=== PATIENT | male | born 1960 | race Caucasian/White ===

== ENCOUNTER 2016-11-25 11:52 | Emergency (ER) | payer BC ==
[2016-11-25 12:27] VITALS: BP 118/83
--- NOTE | 2016-11-25 12:37 | UC ---
Epistaxis Nasal HPI - HPI Summary HPI Summary: The patient comes in today for: 1. Nosebleed: Onset: 7 hours. Palliative/provocative: Nothing particular makes it better or worse other than laying down which makes it worse. Quality: No pain. Region: Right nares. Severity: 0/10 Time: Comes and goes. Associated symptoms: Home treatment: cold washcloth and pinching the nose. Previous treatment: None. He states that the bleeding occurs in an on and off fashion and it has not stopped. He brings in a bottle containing about 1/3 cup of blood. He denies any bleeding disorder. 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 Endocrine History Of: Reports: Dyslipidemia Denies: Diabetes, Thyroid Disease, Hyperthyroidism, Hypothyroidism Cardiovascular History Of: Reports: Hypertension Denies: Cardiac Disorders, Pacemaker/ICD, Congestive Heart Failure Respiratory History Of: Reports: COPD Denies: Asthma, Bronchitis, Pneumonia, Pulmonary Embolism GI/ History Of: Reports: Gastroesophageal Reflux Denies: Ulcer, Gastrointestinal Bleed, Gall Bladder Disease, Kidney Stones, Diverticulitis, Renal Disease, Urosepsis Neurological History Of: Denies: TIA, CVA, Dementia, Seizures, Migraine Psychological History Of: Reports: Depression Denies: Anxiety, Bipolar Disorder, Schizophrenia, Post Traumatic Stress Disorder Cancer History Of: Denies: Lung Cancer, Colorectal Cancer, Breast Cancer, Prostate Cancer, Cervical Cancer Other History Of: Negative For: HIV, Hepatitis B, Hepatitis C, Anticoagulant Therapy - Surgical History Surgical History: None - Family History Known Family History: Positive: Cardiac Disease - Social History Occupation: Unemployed Alcohol Use: Rare Substance Use Type: None Smoking Status (MU): Heavy Every Day Tobacco Smoker Type: Cigarettes Amount Used/How Often: 1 PPD Length of Time of Smoking/Using Tobacco: 42+ YEARS - Immunization History Most Recent Influenza Vaccination: 2011 Most Recent Tetanus Shot: possibly in last 6-7 yrs ago Most Recent Pneumonia Vaccination: none Review of Systems Constitutional: Negative Skin: Negative Eyes: Negative ENT: Negative Respiratory: Negative Cardiovascular: Negative Gastrointestinal: Negative Genitourinary: Negative All Other Systems Reviewed And Are Negative: Yes Physical Exam Triage Information Reviewed: Yes Appearance: Well-Appearing, No Pain Distress, Well-Nourished Vital Signs: Initial Vital Signs Temp 97.6 F 11/25/16 12:23 Pulse 97 11/25/16 12:23 Resp 18 11/25/16 12:23 BP 118/83 11/25/16 12:23 Pulse Ox 98 11/25/16 12:23 Vital Signs Reviewed: Yes Eyes: Positive: Conjunctiva Clear. Negative: Discharge ENT: Positive: Hearing grossly normal, Other: - There is no active bleeding at this time. There is no oozing from the Kiesselbach plexus on the right. There are no clots. There is no obvious vesssel at Kiesselbach's plexus that can be cauterized.. Negative: Pharyngeal erythema, Nasal congestion, Nasal drainage, TM bulging, TM dull, TM red, Tonsillar swelling, Tonsillar exudate Dental: Negative: Gross Decay/Caries @, Dental Fracture @ Neck: Positive: Supple, Nontender, No Lymphadenopathy. Negative: Nuchal Rigidity Respiratory: Positive: Chest non-tender, Lungs clear, No respiratory distress, No accessory muscle use. Negative: Crackles, Wheezing Cardiovascular: Positive: RRR, No Murmur Abdomen Description: Positive: Nontender, No Organomegaly, Soft. Negative: Distended, Guarding Musculoskeletal: Positive: Strength Intact, ROM Intact Neurological: Positive: Alert, Muscle Tone Normal Psychological: Positive: Age Appropriate Behavior, Consolable Skin: Negative: rashes, breakdown Epistaxis Nasal Course/Dx - Course Course Of Treatment: Due to the patient's on and off bleeding, the option of a Merocel standard nasal dressing was discussed with the patient and he and his family wanted to go with this between now and the time he has his ENT appointment. This packing was placed with no problems. - Differential Dx/Diagnosis Provider Diagnoses: Right nares epistaxis. Discharge - Discharge Plan Condition: Stable Disposition: HOME Patient Education Materials: Nosebleed (ED) Referrals: Yuli Maldonado MD [Primary Care Provider] - Jae Damon MD [Medical Doctor] - As Soon As Possible (Please contact Dr. Damon's office as soon as you can for a follow-up appointment for your nose bleeding and packing. ) Additional Instructions: Please sleep with your head elevated.
== END 2016-11-25 13:15 | disposition home or self-care (01) ==
LOC: UCEAST 11:52
DX: R04.0 Epistaxis (principal); I10 Essential (primary) hypertension; E78.5 Hyperlipidemia, unspecified; J44.9 Chronic obstructive pulmonary disease, unspecified; F17.210 Nicotine dependence, cigarettes, uncomplicated; K21.9 Gastro-esophageal reflux disease without esophagitis; G60.0 Hereditary motor and sensory neuropathy
CPT/HCPCS: 30905; 99212; G0463

== ENCOUNTER 2016-11-25 18:37 | Emergency (ER) | payer BC ==
--- NOTE | 2016-11-25 20:02 | ED ---
Throat Pain/Nasal Congestion - HPI Summary HPI Summary: Pt here w/ persistent epistaxis. This started while he was sleeping last night/ early this morning at 3:30am. Denies trauma to the area. Reports he's been getting these on/off the past week but today it wouldn't stop despite pressure. Went to and report indicates pt's nose was not bleeding at that time and no visible vessel or area of concern was identified. A mircel "rhinorocket" was placed for prophlaxis and pt was fine until his nose started bleeding again. It is bleeding through the tamponade and out the other side as well as into his mouth. He also reports a headache forming behind his Rt eye. States this could be from tamponade placement but not sure. Denies taking anti-coagulants and no issues w/ his blood pressure however diastolic is 100's today. Denies bleeding from other locations and no easy bruising of note. No otalgia, fever, chills, chest pain. - History of Current Complaint Chief Complaint: EDEpistaxis Time Seen by Provider: 11/25/16 19:41 Hx Obtained From: Patient, Family/Wall Attendant - female family member - Allergies/Home Medications Allergies/Adverse Reactions: Allergies Allergy/AdvReac Type Severity Reaction Status Date / Time No Known Allergies Allergy Verified 07/07/15 15:06 PMH/Surg Hx/FS Hx/Imm Hx Previously Healthy: Yes Endocrine/Hematology History: Denies: Hx Anticoagulant Therapy, Hx Blood Disorders, Hx Diabetes, Hx Thyroid Disease, Hx Unexplained Bleeding Cardiovascular History: Reports: Hx Hypertension, Other Cardiovascular Problems/ Disorders - HTN Denies: Hx Congestive Heart Failure, Hx Pacemaker/ICD Respiratory History: Reports: Hx Chronic Obstructive Pulmonary Disease (COPD), Other Respiratory Problems/Disorders - COPD Denies: Hx Asthma, Hx Lung Cancer, Hx Pneumonia, Hx Pulmonary Embolism GI History: Denies: Hx Gall Bladder Disease, Hx Gastrointestinal Bleed, Hx Ulcer, Hx Urosepsis History: Denies: Hx Kidney Stones, Hx Renal Disease Musculoskeletal History: Reports: Hx Arthritis, Other Musculoskeletal History - muscular dystrophy Sensory History: Denies: Hx Hearing Aid Neurological History: Reports: 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 Denies: Hx Dementia, Hx Migraine, Hx Seizures, Hx Transient Ischemic Attacks (TIA) Psychiatric History: Reports: Hx Depression Denies: Hx Anxiety, Hx Panic Disorder, Hx Schizophrenia, Hx Bipolar Disorder - Immunization History Date of Tetanus Vaccine: UTD Infectious Disease History: Reports: Hx Shingles - shingles possibly Denies: Hx Clostridium Difficile, Hx Hepatitis, Hx Human Immunodeficiency Virus (HIV), Hx of Known/Suspected MRSA, Hx Tuberculosis, Hx Known/Suspected VRE , Hx Known/Suspected VRSA, History Other Infectious Disease, Traveled Outside the [place] in Last 30 Days - Family History Known Family History: Positive: Cardiac Disease - Social History Lives: With Family Alcohol Use: Rare Hx Substance Use: No Substance Use Type: Reports: None Smoking Status (MU): Current Every Day Smoker Type: Cigarettes Amount Used/How Often: 1 PPD Length of Time of Smoking/Using Tobacco: 42+ YEARS Review of Systems Negative: Fever, Chills Positive: Epistaxis - see HPI Negative: Chest Pain Negative: Shortness Of Breath - but is difficult to breath w/ B/L nasal passages clogged and blood going down throat Gastrointestinal: Negative Negative: Abdominal Pain, Vomiting, Diarrhea, Nausea Positive: no symptoms reported Musculoskeletal: Negative Negative: Bruising Positive: Headache - see HPI Psychological: Normal All Other Systems Reviewed And Are Negative: Yes Physical Exam Triage Information Reviewed: Yes Vital Signs On Initial Exam: Initial Vitals Temp Pulse Resp BP Pulse Ox 97.0 F 97 20 140/101 100 11/25/16 18:39 11/25/16 18:39 11/25/16 18:39 11/25/16 18:39 11/25/16 18:39 Vital Signs Reviewed: Yes Appearance: Positive: Well-Appearing, No Pain Distress, Thin Skin: Positive: Warm, Dry Head/Face: Positive: Normal Head/Face Inspection ENT: Positive: Nasal drainage - BRB from B/L nares - tamponade is saturated in Rt nare Respiratory/Lung Sounds: Positive: Other - mild tachypnea. Negative: Stridor Diagnostics - Vital Signs Vital Signs Temp Pulse Resp BP Pulse Ox 11/25/16 18:39 97.0 F 97 20 140/101 100 - Laboratory Lab Statement: Any lab studies that have been ordered have been reviewed, and results considered in the medical decision making process.
[2016-11-25 20:26] VITALS: BP 132/90
[2016-11-25 20:31] LABS: Hematocrit 42 % (42-52); Hemoglobin 14.2 g/dl (14.0-18.0); Mean Corpuscular HGB Conc 34 g/dl (31-36); Mean Corpuscular Hemoglobin 30 pg (27-31); Mean Corpuscular Volume 88 fL (80-94); Mean Platelet Volume 10 um3 (7.4-10.4); Red Blood Count 4.78 10^6/ul (4.0-5.4); Red Cell Distribution Width 14 % (10.5-15)
[2016-11-25 21:01] LABS: Total Bilirubin 0.5 mg/dL (0.2-1.0)
[2016-11-25 21:05] LABS: Albumin 3.7 g/dL (3.2-5.2); Calcium 9.4 mg/dL (8.6-10.3); EGFR African American 162.3 (>60); EGFR Non-African American 126.2 (>60); Potassium 3.6 mmol/L (3.5-5.0); Total Protein 6.7 g/dL (6.4-8.9)
[2016-11-25] MEDS ORDERED: Phenylephrine 0.25% NASAL* PUFF BOTH NARES ONE (21:20)
[2016-11-25] MEDS ORDERED: Lidocaine 2% JELLY* 10 ML JELLY TOPICAL ONE (21:21)
[2016-11-25] MEDS ORDERED: Phenylephrine 0.5% NASAL* BTL BOTH NARES ONE (21:21)
[2016-11-25] MEDS ORDERED: Lidocaine 2% JELLY* 6 ML JELLY TOPICAL ONE (21:22)
[2016-11-25] MEDS ORDERED: Phenylephrine 0.5% NASAL* BTL ONE (21:22)
[2016-11-25] MEDS ORDERED: oxyCODONE/Acetamin 5/325 MG* TAB PO ONE ×2 (22:14→23:10)
[2016-11-25] MEDS ORDERED: Amoxicillin/Clavulanate TAB* 875 MG PO ONE (23:17)
== END 2016-11-25 23:25 | disposition home or self-care (01) ==
LOC: ED 18:37
DX: R04.0 Epistaxis (principal); F17.210 Nicotine dependence, cigarettes, uncomplicated
CPT/HCPCS: 36415; 80053; 85025; 85610; 85730; 99282; A9270-GY

== ENCOUNTER 2017-08-25 13:32 | Inpatient (IN) | payer BC ==
[2017-08-25] MEDS ORDERED: Albuterol/Ipratropium NEB.SOL* Albuterol 2.5 MG/Ipratropium 0.5 MG 3 ML INH ONE (13:50)
[2017-08-25] MEDS ORDERED: methylPREDNISolone 125 MG* 2 ML VIAL IV ONE (14:05)
[2017-08-25] MEDS ORDERED: Albuterol/Ipratropium NEB.SOL* Albuterol 2.5 MG/Ipratropium 0.5 MG 3 ML INH PRN (14:05)
[2017-08-25] MEDS ORDERED: Oseltamivir CAP* 75 MG CAP PO ONE (14:06)
[2017-08-25 14:32] LABS: ABS Basophils 0.1 10^3/ul (0-0.2); ABS Eosinophils 0.1 10^3/ul (0-0.6); ABS Lymphocytes 0.7 10^3/ul (1.0-4.8); ABS Monocytes 0.7 10^3/ul (0-0.8); ABS Neutrophils 5.6 10^3/ul (1.5-7.7); ABS Nucleated RBC 0 10^3/ul; Eosinophil % 0.8 % (0-6); Hematocrit 38 % (42-52); Hemoglobin 12.9 g/dl (14.0-18.0); Lymphocyte % 9.7 % (25-47); Mean Corpuscular HGB Conc 34 g/dl (31-36); Mean Corpuscular Hemoglobin 28 pg (27-31); Mean Corpuscular Volume 83 fL (80-94); Mean Platelet Volume 11 um3 (7.4-10.4); Nucleated Red Blood Cells % 0; Platelet Count 126 10^3/ul (150-450); Red Blood Count 4.62 10^6/ul (4.0-5.4); Red Cell Distribution Width 15 % (10.5-15); White Blood Count 7.2 10^3/ul (3.5-10.8)
[2017-08-25] MEDS ORDERED: Acetaminophen TAB* 325 MG ONE (14:34)
[2017-08-25] MEDS ORDERED: Morphine INJ* 4 MG/ML 1 ML CARPUJECT IV ONE (14:47)
[2017-08-25] MEDS ORDERED: Ondansetron INJ* 2 MG/ML VIAL IV ONE (14:47)
[2017-08-25 14:48] LABS: EGFR Non-African American 108.3 (>60)
--- NOTE | 2017-08-25 14:49 | RAD ---
INDICATION: Difficulty breathing COMPARISON: Most recent comparison chest x-rays dated August 06, 2013 TECHNIQUE: Single AP portable view of the chest was obtained. FINDINGS: Image quality is compromised due to the relative inferiority of a portable chest x-ray. The heart and mediastinum exhibit normal size and contour. Similar to the prior chest x-ray, the lungs appear hyperaerated. There is a mild degree of peribronchial cuffing. There is no evidence of a large pleural effusion. Loops of air-filled colon are noted beneath the right hemidiaphragm. There is no definite free air in the peritoneal cavity. Visualized bones are normal for the patient's age. IMPRESSION: 1. No radiographically apparent acute cardiopulmonary abnormality. 2. Incidentally noted are air-filled loops of bowel beneath the right hemidiaphragm. Please correlate to any potential GI symptoms.
[2017-08-25] MEDS ORDERED: Acetaminophen TAB* 325 MG PO ONE (14:53)
[2017-08-25] MEDS ORDERED: Al Hydrox/Mg Hydrox/Simet LIQ* 30 ML UDC PO PRN (15:30)
[2017-08-25] MEDS ORDERED: Iohexol 350* (CONTRAST) 500 ML MDV IV ONE (16:15)
[2017-08-25] MEDS ORDERED: Vancomycin per Pharmacy* NOTE FOLLOW UP PRN (16:47)
[2017-08-25] MEDS ORDERED: Ipratropium 0.5MG/2.5ML NEB* 0.5 MG/2.5 ML NEB.SOLN INH SCH (17:00)
[2017-08-25] MEDS ORDERED: Vancomycin(*) 750 MG in NS 0.9% 250 ML* 250 ML IVPB SCH (17:00)
[2017-08-25] MEDS ORDERED: Albuterol 2.5 MG/3 ML NEB.SOL* (0.083%) INH SCH (17:00)
[2017-08-25] MEDS: Enoxaparin(*) 40 MG/0.4 ML SYR SUBCUT SCH (17:04)
[2017-08-25] MEDS: methylPREDNISolone SOD 40 MG* 1 ML VIAL IV SCH (17:04)
[2017-08-25] MEDS: Azithromycin IV(*) 500 MG in NS 0.9% 250 ML* 250 ML IVPB SCH (17:11)
[2017-08-25] MEDS ORDERED: Vancomycin(*) 1,250 MG IV x ONCE IVPB ONE ×2 (17:45)
[2017-08-25] MEDS: Albuterol/Ipratropium NEB.SOL* Albuterol 2.5 MG/Ipratropium 0.5 MG 3 ML INH SCH (20:41)
--- NOTE | 2017-08-25 20:50 | RAD ---
STUDY: CT angiography of the chest, abdomen and pelvis. INDICATION: Exacerbation of COPD COMPARISON: CTA chest August 07, 2013 TECHNIQUE: Multidetector CT angiography of the chest, abdomen and pelvis were obtained from the lung apices to the ischial tuberosities after the intravenous injection of 100 mL of Omnipaque 350. Reformats were created in the coronal and sagittal planes. 3-D vascular imaging was created from the source images and reviewed as well. ANGIOGRAPHIC FINDINGS: There are no filling defects of the central or lobar pulmonary arteries. At the level of the right pulmonary artery the ascending aorta measures 3.5 x 3.1 cm and the descending aorta measures 2.9 x 2.9 cm. There is mixed attenuation atherosclerotic calcification of the thoracic aorta. There is calcification at the aortic arch at the origin of the great vessels. The main vessels off of the aorta including the celiac trunk, SMA, bilateral renal arteries are adequately patent. There is an infrarenal abdominal aortic aneurysm measuring 3.6 x 3.7 cm in the axial plane and approximately 8.4 cm in length. Beyond this adequate flow is seen filling the bilateral iliac arteries and proximal femoral arteries. NON ANGIOGRAPHIC FINDINGS: Chest: Lungs exhibit diffuse centrilobular emphysematous changes. There is right than left pleural best apical scarring. There are no large suspicious nodules or masses. There is no mediastinal or hilar lymphadenopathy. The heart is grossly normal in appearance. Abdomen & Pelvis: The liver, spleen, pancreas and adrenal glands are grossly normal in appearance. There is hyperdense material in the dependent portion of the gallbladder most consistent with stones and/or sludge. There are no signs of biliary obstruction. The kidneys are normal in appearance without focal mass, calcification or signs of hydronephrosis. The renal cortices enhance promptly and symmetrically on arterial phase imaging. Evaluation of the gastrointestinal tract is limited without oral contrast. The small and large bowel are not distended. The appendix is normal in appearance measuring 5 mm in diameter (axial image 207).. There is no gross retroperitoneal or mesenteric lymphadenopathy. The pelvic viscera is normal in appearance. Degenerative changes of the spine include dextroconvex curvature at the upper thoracic spine and a small degree of levoconvex curvature of the lower lumbar spine. There is loss of intervertebral disc height. Degenerative changes are most severe at L4/L5 where there is endplate sclerosis and subchondral lucencies. There is vacuum disc phenomenon at L5/S1.There are no sinister bone lesions. IMPRESSION: 1. Infrarenal abdominal aortic aneurysm measuring up to 3.6 x 3.7 cm in the axial plane. 2. Additional chronic and degenerative changes described in the body the report above.
--- NOTE | 2017-08-25 21:04 | HP ---
HISTORY AND PHYSICAL: DATE OF ADMISSION: 08/25/17 TIME OF EXAM: 3 p.m. PRIMARY CARE PHYSICIAN: Dr. Maldonado. CHIEF COMPLAINT: Shortness of breath. HISTORY OF PRESENT ILLNESS: This is a 57-year-old man with a history of COPD who presents with worsening shortness of breath for three days. He is in the emergency department with his and his daughter. His provides the history due to Mr. Potter's work of breathing. His reports that their daughter had a cold two weeks ago then she and Sukhi caught it last week and on Friday three days ago Sukhi became more short of breath with wheezing and developed diarrhea. He has had some subjective fevers at home and continued to be more and more short of breath until today when they decided to come to the emergency department. His reports that he does not take his inhalers as prescribed and he continues to smoke a pack per day. He has never needed to be intubated for his COPD and his last exacerbation was in 2012. He has not been on steroids recently. PAST MEDICAL HISTORY: 1. Rshaadg-Kpdlj-Mylml disease. 2. COPD. 3. Hypertension. 4. Hyperlipidemia. HOME MEDICATIONS: 1. Albuterol p.r.n. 2. Amlodipine 5 mg daily. 3. Duloxetine 60 mg daily. 4. Fluticasone 2 puffs t.i.d. 5. Gabapentin 600 mg t.i.d. 6. Hydrochlorothiazide 25 mg daily. 7. Naproxen 500 mg t.i.d. 8. Omeprazole 40 mg at bedtime. 9. Simvastatin 20 mg daily. 10. Spiriva daily. SOCIAL HISTORY: He lives at home with his and his daughter. He smokes a pack per day. He denies alcohol or other drugs. REVIEW OF SYSTEMS: Positive for diarrhea, shortness of breath, dyspnea on exertion, chest pain, shoulder pain and abdominal pain. Review of systems is negative for headache, nausea, constipation or palpitations. PHYSICAL EXAMINATION GENERAL: Alert, thin man in respiratory distress. He has a prolonged expiratory phase and cannot complete a half a sentence due to his work of breathing. He is thin and barrel-chested. VITAL SIGNS: Heart rate 100, respiratory rate 30, temperature of 101 degrees, pulse ox 95% on 2 L. He was initially on Vapotherm in the emergency department ; however, pulse oximetry is not recorded prior to that. HEENT: No pharyngeal exudates or erythema, pursed lip breathing. NECK: No JVP. No cervical lymphadenopathy. CHEST: Tachycardic. No murmurs. PMI non-displaced. Prolonged expiratory phase. No rhonchi. No wheezes. ABDOMEN: Tender diffusely to light palpation. Negative Rabago's sign. No guarding. No rebound. No CVA tenderness. EXTREMITIES: No edema bilateral foot deformities with noninfected ulcers on both plantar surfaces. On the left 5th digit there is an area of erythema and warmth without drainage or exudate. LABORATORY DATA/DIAGNOSTIC TESTING: White blood cells 7.2, hemoglobin 12.9, platelets 126. Sodium 139, potassium 3.5, chloride 107, bicarb 25. LFTs are within normal limits. Rapid influenza test is negative. Chest x-ray shows no infiltrates or effusions. EKG, sinus tachycardia with normal intervals and no ST or T wave changes. ASSESSMENT AND PLAN: This is a 57-year-old man with history of chronic obstructive pulmonary disease, presenting with three days of worsening shortness of breath, fevers and diarrhea. 1. Acute hypoxic respiratory failure. Mr. Saavedra wears no oxygen at home and on admission here he required Vapotherm. He has now been titrated down to 2 L of oxygen; however, I am very concerned about his work of breathing. I am ordering BiPAP for him right now for work of breathing and an ABG to quantify his hypercapnia. He is willing to be intubated if needed. At this point, he needs assistance with BiPAP. I am starting antibiotics for community acquired pneumonia and Solu-Medrol. He will be on ipratropium and albuterol nebulizers round-the- clock and will be admitted to the ICU for close monitoring. Flu swab was negative. We will check a sputum culture and Legionella antigen. 2. Left foot cellulitis. He has had ulcers on his feet from his foot deformities and has seen wound care in the past. However, he has not followed up with them recently. I will consult wound care and start antibiotics to cover cellulitis and check blood cultures. 3. Hypertension. Continue home blood pressure medications. 4. Hyperlipidemia. Continue home statin. 5. Disposition: Admit to ICU with BiPAP. TIME SPENT: Greater than 60 minutes was spent on this admission. [id number]/[facility] #: [id number] MK
[2017-08-25] MEDS: Gabapentin CAP(*) 300 MG PO SCH (21:31)
[2017-08-25] MEDS: Omeprazole CAP* 20 MG PO SCH (21:31)
[2017-08-25] MEDS: Naproxen TAB* 250 MG PO SCH (21:32)
[2017-08-26] MEDS: methylPREDNISolone SOD 40 MG* 1 ML VIAL IV SCH ×3 (00:09→16:43)
[2017-08-26] MEDS ORDERED: Vancomycin(*) 750 MG in NS 0.9% 250 ML* 250 ML IVPB SCH (01:30)
[2017-08-26] MEDS: Albuterol/Ipratropium NEB.SOL* Albuterol 2.5 MG/Ipratropium 0.5 MG 3 ML INH SCH ×2 (01:51→09:26)
[2017-08-26] MEDS: Acetaminophen TAB* 325 MG PO PRN ×2 (04:11→17:18)
[2017-08-26 06:16] LABS: ABS Basophils 0 10^3/ul (0-0.2); ABS Eosinophils 0 10^3/ul (0-0.6); ABS Lymphocytes 0.5 10^3/ul (1.0-4.8); ABS Monocytes 0.1 10^3/ul (0-0.8); ABS Neutrophils 4.7 10^3/ul (1.5-7.7); ABS Nucleated RBC 0 10^3/ul; Eosinophil % 0 % (0-6); Hematocrit 35 % (42-52); Hemoglobin 11.7 g/dl (14.0-18.0); Lymphocyte % 9.3 % (25-47); Mean Corpuscular HGB Conc 33 g/dl (31-36); Mean Corpuscular Hemoglobin 28 pg (27-31); Mean Corpuscular Volume 83 fL (80-94); Mean Platelet Volume 10 um3 (7.4-10.4); Nucleated Red Blood Cells % 0; Platelet Count 131 10^3/ul (150-450); Red Blood Count 4.27 10^6/ul (4.0-5.4); Red Cell Distribution Width 15 % (10.5-15); White Blood Count 5.3 10^3/ul (3.5-10.8)
[2017-08-26] MEDS ORDERED: Mouth Piece, Nicotine* 1 EACH CARTRIDGE INH PRN (07:34)
--- NOTE | 2017-08-26 07:41 | PN ---
Subjective Date of Service: 08/26/17 Interval History: off bipap and Vapotherm since yesterday on transfer to unit feels much better cough improving does not want nicotine patch but will accept inhaler Objective Active Medications: Acetaminophen (Tylenol Tab*) 650 mg PO Q4H PRN PRN Reason: FEVER/PAIN Last Admin: 08/26/17 04:11 Dose: 650 mg Al Hydrox/Mg Hydrox/Simethicone (Maalox Plus*) 30 ml PO Q6H PRN PRN Reason: INDIGESTION Albuterol/Ipratropium (Duoneb (Albuterol 2.5 Mg/Ipratropium 0.5 Mg)) 1 neb INH [id number] [facility]WAKE [facility] Last Admin: 08/26/17 01:51 Dose: 1 neb Amlodipine Besylate (Norvasc Tab*) 5 mg PO DAILY [facility] Device (Nicotine Mouth Piece*) 1 each INH .USE WITH NICOTROL PRN PRN Reason: CRAVING Duloxetine HCl (Cymbalta Cap*) 60 mg PO DAILY [facility] Enoxaparin Sodium (Lovenox(*)) 40 mg SUBCUT Q24H [facility] Last Admin: 08/25/17 17:04 Dose: 40 mg Fluticasone Propionate (Flonase Nasal Morganza 50mcg*) 2 spray BOTH NARES DAILY [facility] Gabapentin (Neurontin Cap(*)) 600 mg PO TID [facility] Last Admin: 08/25/17 21:31 Dose: 600 mg Hydrochlorothiazide (Hydrodiuril Tab*) 25 mg PO DAILY [facility] Azithromycin 500 mg/ Sodium (Chloride) 250 mls @ 250 mls/hr IVPB Q24H [facility] Last Admin: 08/25/17 17:11 Dose: 250 mls/hr Influenza Virus Vaccine (Fluarix *Quad* 2017-*) 0.5 ml IM .ONCE ONE Stop: 08/26/17 09:01 Methylprednisolone Sodium Succinate (Solu-Medrol 40 Mg) 40 mg IV Q8H [facility] Last Admin: 08/26/17 00:09 Dose: 40 mg Naproxen (Naprosyn Tab*) 500 mg PO TID [facility] Last Admin: 08/25/17 21:32 Dose: 500 mg Nicotine (Nicotine Inhaler*) 10 mg INH Q2H PRN PRN Reason: CRAVING Omeprazole (Prilosec Cap*) 40 mg PO BEDTIME [facility] Last Admin: 08/25/17 21:31 Dose: 40 mg Pharmacy Consult (Vancomycin Per Pharmacy*) 1 note FOLLOW UP . PRN PRN Reason: PER PROTOCOL Pneumococcal Polyvalent Vaccine (Pneumococcal Vac 23-Polyvalent*) 0.5 ml IM .ONCE ONE Stop: 08/26/17 09:01 Vital Signs - 8 hr 08/25/17 08/25/17 08/25/17 23:38 23:39 23:45 Temperature Pulse Rate 75 74 85 Respiratory 31 31 28 Rate Blood Pressure 119/74 (mmHg) O2 Sat by Pulse 89 90 97 Oximetry 08/26/17 08/26/17 08/26/17 00:00 00:01 00:15 Temperature 98.6 F Pulse Rate 76 73 72 Respiratory 29 25 26 Rate Blood Pressure 125/75 128/79 (mmHg) O2 Sat by Pulse 88 90 90 Oximetry 08/26/17 08/26/17 08/26/17 00:30 00:45 01:00 Temperature Pulse Rate 70 70 69 Respiratory 25 25 25 Rate Blood Pressure 115/72 117/74 120/69 (mmHg) O2 Sat by Pulse 94 94 95 Oximetry 08/26/17 08/26/17 08/26/17 01:01 01:15 01:30 Temperature Pulse Rate 71 72 70 Respiratory 26 24 22 Rate Blood Pressure 123/79 117/72 (mmHg) O2 Sat by Pulse 94 96 95 Oximetry 08/26/17 08/26/17 08/26/17 01:45 01:51 02:00 Temperature Pulse Rate 72 70 74 Respiratory 22 20 22 Rate Blood Pressure 129/74 119/70 (mmHg) O2 Sat by Pulse 95 96 97 Oximetry 08/26/17 08/26/17 08/26/17 02:01 02:15 02:30 Temperature Pulse Rate 74 75 77 Respiratory 27 27 23 Rate Blood Pressure 117/68 119/69 (mmHg) O2 Sat by Pulse 96 95 95 Oximetry 08/26/17 08/26/17 08/26/17 02:45 03:00 03:01 Temperature Pulse Rate 83 79 81 Respiratory 20 29 20 Rate Blood Pressure 94/70 103/57 (mmHg) O2 Sat by Pulse 89 91 90 Oximetry 08/26/17 08/26/17 08/26/17 03:15 03:30 03:45 Temperature Pulse Rate 75 73 73 Respiratory 21 25 23 Rate Blood Pressure 125/73 121/69 106/73 (mmHg) O2 Sat by Pulse 95 94 93 Oximetry 08/26/17 08/26/17 08/26/17 04:00 04:01 04:15 Temperature 98.2 F Pulse Rate 71 70 72 Respiratory 25 23 20 Rate Blood Pressure 121/75 118/72 (mmHg) O2 Sat by Pulse 94 93 93 Oximetry 08/26/17 08/26/17 08/26/17 04:30 04:45 05:00 Temperature Pulse Rate 76 73 74 Respiratory 23 22 28 Rate Blood Pressure 119/76 119/73 127/77 (mmHg) O2 Sat by Pulse 93 94 94 Oximetry 08/26/17 08/26/17 08/26/17 05:01 05:16 05:30 Temperature Pulse Rate 78 73 74 Respiratory 30 26 22 Rate Blood Pressure 113/64 108/75 (mmHg) O2 Sat by Pulse 95 93 95 Oximetry 08/26/17 08/26/17 08/26/17 05:46 06:00 06:01 Temperature Pulse Rate 84 75 69 Respiratory 27 27 32 Rate Blood Pressure 112/87 135/80 (mmHg) O2 Sat by Pulse 95 94 94 Oximetry Oxygen Devices in Use Now: Nasal Cannula Appearance: NAD Eyes: No Scleral Icterus, PERRLA Ears/Nose/Mouth/Throat: Mucous Membranes Moist Neck: NL Appearance and Movements; NL JVP, Trachea Midline Respiratory: Symmetrical Chest Expansion and Respiratory Effort, - - wheeze most prominant in left upper lung field Cardiovascular: RRR Abdominal: NL Sounds; No Tenderness; No Distention, No Hepatosplenomegaly Skin: - - mild erythema around left 5th MTP and right heal, skin break down right heal and left MTP Neurological: Alert and Oriented x 3 Result Diagrams: 08/26/17 06:00 08/26/17 06:00 Microbiology and Other Data: Microbiology 08/25/17 18:30 Nasal Screen MRSA (PCR)(OZZIE) - Final Nasal Mrsa Negative Assess/Plan/Problems-Billing Assessment: 57 yo M emphysema and active tobacco use p/w SOB - Patient Problems (1) Acute respiratory failure with hypoxia Comment: suspect COPD edacerbation in setting of vial illness c/w azithromycin c/w IV steroids transfer to smoking cessation delivered (2) COPD (chronic obstructive pulmonary disease) Comment: start spiriva and dulera (3) Essential hypertension Comment: HCTZ (4) Cellulitis Comment: low to moderate suspicion change vanco to keflex QID (5) DVT prophylaxis Comment: lovenox
[2017-08-26] MEDS ORDERED: Spiriva Inhaler DEVICE* 1 EACH DEVICE SCH (08:00)
[2017-08-26] MEDS: Albuterol/Ipratropium NEB.SOL* Albuterol 2.5 MG/Ipratropium 0.5 MG 3 ML INH PRN (08:04)
[2017-08-26] MEDS: Mometasone/Formoter 100/5 MDI INH SCH ×2 (08:46→20:39)
[2017-08-26] MEDS: Tiotropium CAP.INH* CAP.INH/18 MCG (USE ORDER SET !) INH SCH (08:46)
[2017-08-26] MEDS ORDERED: Influenza VAC *QUAD* 2017-18* 0.5 ML SYRINGE IM ONE (09:00)
[2017-08-26] MEDS ORDERED: Pneumococcal *Vac Polyvalent 0.5 ML VIAL IM ONE (09:00)
[2017-08-26] MEDS: Naproxen TAB* 250 MG PO SCH ×3 (09:26→22:38)
[2017-08-26] MEDS: Hydrochlorothiazide TAB* 25 MG PO SCH (09:26)
[2017-08-26] MEDS: Gabapentin CAP(*) 300 MG PO SCH ×3 (09:26→22:36)
[2017-08-26] MEDS: DULoxetine DR CAP* 60 MG CAP.DR PO SCH (09:26)
[2017-08-26] MEDS: Fluticasone NASAL SPRAY 50MCG* 16 gm SPRAY BTL BOTH NARES SCH (09:27)
[2017-08-26] MEDS: amLODIPine TAB* 5 MG PO SCH (09:27)
[2017-08-26] MEDS: Cephalexin CAP* 500 MG PO SCH ×4 (09:27→22:38)
[2017-08-26] MEDS: Nicotine Inhaler* 10 MG AMP INH PRN (12:28)
[2017-08-26] MEDS: Enoxaparin(*) 40 MG/0.4 ML SYR SUBCUT SCH (16:43)
[2017-08-26] MEDS: Azithromycin IV(*) 500 MG in NS 0.9% 250 ML* 250 ML IVPB SCH (17:07)
[2017-08-26] MEDS ORDERED: Vancomycin Trough Check NOTE FOLLOW UP ONE (17:30)
[2017-08-26] MEDS: Omeprazole CAP* 20 MG PO SCH (22:38)
[2017-08-27] MEDS: methylPREDNISolone SOD 40 MG* 1 ML VIAL IV SCH ×2 (00:23→08:26)
[2017-08-27] MEDS: Mometasone/Formoter 100/5 MDI INH SCH (08:09)
[2017-08-27] MEDS: Tiotropium CAP.INH* CAP.INH/18 MCG (USE ORDER SET !) INH SCH (08:10)
[2017-08-27] MEDS: Gabapentin CAP(*) 300 MG PO SCH ×2 (08:31→13:57)
[2017-08-27] MEDS: Naproxen TAB* 250 MG PO SCH ×2 (08:32→13:56)
[2017-08-27] MEDS: Hydrochlorothiazide TAB* 25 MG PO SCH (08:32)
[2017-08-27] MEDS: amLODIPine TAB* 5 MG PO SCH (08:33)
[2017-08-27] MEDS: Fluticasone NASAL SPRAY 50MCG* 16 gm SPRAY BTL BOTH NARES SCH (08:36)
[2017-08-27] MEDS ORDERED: DULoxetine DR CAP* 30 MG CAP.DR PO SCH (10:00)
[2017-08-27] MEDS: Cephalexin CAP* 500 MG PO SCH ×2 (10:22→12:51)
[2017-08-27] MEDS: Nicotine Inhaler* 10 MG AMP INH PRN (10:30)
[2017-08-27] MEDS: DULoxetine DR CAP* 60 MG CAP.DR PO SCH (11:22)
[2017-08-27 11:55] VITALS: BP 142/83
[2017-08-27] MEDS: Acetaminophen TAB* 325 MG PO PRN (12:50)
[2017-08-27] MEDS: Albuterol/Ipratropium NEB.SOL* Albuterol 2.5 MG/Ipratropium 0.5 MG 3 ML INH PRN (12:56)
--- NOTE | 2017-08-28 01:00 | DS ---
CC: Dr. Maldonado * DISCHARGE SUMMARY: DATE OF ADMISSION: 08/25/17 DATE OF DISCHARGE: 08/27/17 PRIMARY CARE PROVIDER: Dr. Maldonado. PRIMARY DIAGNOSIS: Hypoxic respiratory failure. SECONDARY DIAGNOSES: Includes: 1. Chronic obstructive pulmonary disease. 2. Hypertension. 3. Hyperlipidemia. 4. Tobacco abuse. 5. Cellulitis. MEDICATIONS ON DISCHARGE: 1. Flovent Diskus 2 puffs twice daily. 2. Spiriva 1 puff daily. 3. Duloxetine 60 mg daily. 4. Albuterol 2 puff every 6 hours as needed. 5. Gabapentin 600 mg 3 times a day. 6. Fluticasone nasal spray 2 sprays both nares. 7. Simvastatin 20 mg in the evening. 8. Omeprazole 40 mg in the evening. 9. Naproxen 500 mg 3 times a day as needed. 10. Hydrochlorothiazide 25 mg daily. 11. Amlodipine 5 mg daily. 12. Tiotropium 1 capsule daily. 13. Prednisone 50 mg daily for 5 additional days. 14. Keflex 500 mg 3 times a day. LABORATORY DATA: Arterial blood gas; pH 7.45, pCO2 of 32, pO2 of 123 on presentation. HISTORY OF PRESENT ILLNESS AND HOSPITAL COURSE: This is a 57-year-old man with past medical history of COPD, as well as current tobacco use, started to have shortness of breath 3 days prior to presentation in the setting of recent upper respiratory tract infection. He was treated for COPD exacerbation with azithromycin as well as prednisone IV with rapid improvement. He was placed on BiPAP in the emergency room; however, no longer required positive ventilation by the time he transferred to intensive care unit. There was concern for cellulitis involving his lateral left fifth toe and an area of chronic ulceration as well as right heel similar in the area of chronic ulceration. Seen by this author the day subsequent to his admission. There was no longer any area of erythema. However, I will continue his antibiotics for several additional days, be followed by his primary care provider. We discharged with additional 5 days of steroids. Smoking cessation counseling was given to the patient, he is currently pre-contemplative. At followup, please: 1. Assess resolution of COPD exacerbation, extend steroid use as necessary. 2. Evaluate left fifth toe as well as right heel. Continue antibiotics as needed. Consider referral to Wound Care. 3. Continue smoking cessation counseling. Reasons to return to the hospital including, but not limited to recurrent or worsening symptoms, worsening shortness of breath, nausea, vomiting, lightheadedness, loss of consciousness, fevers, chills, night sweats, chest pain , inability to obtain or tolerate medications were discussed with the patient and his , they acknowledged understanding. Greater than 30 minutes were spent on discharge of the patient, greater than half was spent [id number] with the patient. [id number]/[facility] #: [id number] MK
--- NOTE | 2017-08-29 15:50 | ED ---
Jose Farooq Gabriel, scribed for Vinod Watkins MD on 08/25/17 at 1405 . Shortness of Breath - HPI Summary HPI Summary: This patient is a 57 year old M presenting to [facility] accompanied by his with a chief complaint of SOB since 08/24/16. The patient rates the pain 9/10 in severity. Patient reports ABD pain, cough, chills, diaphoresis, CP, fever, and diarrhea. Patient denies vomiting. Patient states his symptoms started with a cold but have gotten worse. Patient has a history of COPD and muscular dystrophy. - History of Current Complaint Chief Complaint: EDShortnessOfBreath Time Seen by Provider: 08/25/17 13:48 Hx Obtained From: Patient Onset/Duration: Still Present Timing: Constant Current Severity: Severe Dyspnea At: Rest Associated Signs & Symptoms: Negative - vomiting, Cough (Nonproductive), Fever, Chills, Diaphoresis - Allergy/Home Medications Allergies/Adverse Reactions: Allergies Allergy/AdvReac Type Severity Reaction Status Date / Time No Known Allergies Allergy Verified 07/07/15 15:06 Home Medications: Home Medications Fluticasone DISKUS 250 MCG(NF) [Flovent Diskus 250 MCG(NF)] 2 puff INH TID 08/25 [History Confirmed 08/25/17] Fluticasone NASAL SPRAY 50MCG* [Flonase NASAL SPRAY 50MCG*] 2 spray BOTH NARES DAILY 08/25/17 [History Confirmed 08/25/17] Spiriva Inhaler DEVICE* [Tiotropium Inhaler DEVICE*] 1 inh PO ONCE PRN 08/25/17 [History Confirmed 08/25/17] PMH/Surg Hx/FS Hx/Imm Hx Endocrine/Hematology History: Denies: Hx Anticoagulant Therapy, Hx Blood Disorders, Hx Diabetes, Hx Thyroid Disease, Hx Unexplained Bleeding Cardiovascular History: Reports: Hx Hypertension, Other Cardiovascular Problems/ Disorders - HTN Denies: Hx Congestive Heart Failure, Hx Pacemaker/ICD Respiratory History: Reports: Hx Chronic Obstructive Pulmonary Disease (COPD), Other Respiratory Problems/Disorders - COPD Denies: Hx Asthma, Hx Lung Cancer, Hx Pneumonia, Hx Pulmonary Embolism GI History: Denies: Hx Gall Bladder Disease, Hx Gastrointestinal Bleed, Hx Ulcer, Hx Urosepsis History: Denies: Hx Kidney Stones, Hx Renal Disease Musculoskeletal History: Reports: Hx Arthritis, Other Musculoskeletal History - muscular dystrophy Sensory History: Denies: Hx Hearing Aid Neurological History: Reports: 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 Denies: Hx Dementia, Hx Migraine, Hx Seizures, Hx Transient Ischemic Attacks (TIA) Psychiatric History: Reports: Hx Depression Denies: Hx Anxiety, Hx Panic Disorder, Hx Schizophrenia, Hx Bipolar Disorder - Immunization History Date of Tetanus Vaccine: UTD Infectious Disease History: Reports: Hx Shingles - shingles possibly Denies: Hx Clostridium Difficile, Hx Hepatitis, Hx Human Immunodeficiency Virus (HIV), Hx of Known/Suspected MRSA, Hx Tuberculosis, Hx Known/Suspected VRE , Hx Known/Suspected VRSA, History Other Infectious Disease, Traveled Outside the [place] in Last 30 Days - Family History Known Family History: Positive: Cardiac Disease, Other - CVA Negative: Diabetes - Social History Lives: With Family Alcohol Use: Rare Hx Substance Use: No Substance Use Type: Reports: None Smoking Status (MU): Current Every Day Smoker Type: Cigarettes Amount Used/How Often: 1 PPD Length of Time of Smoking/Using Tobacco: 42+ YEARS Review of Systems Positive: Fever, Chills, Skin Diaphoresis Negative: Erythema Negative: Sore Throat Negative: Chest Pain Positive: Cough Positive: Abdominal Pain, Diarrhea. Negative: Vomiting, Nausea Negative: dysuria, hematuria Negative: Myalgia, Edema Negative: Rash Neurological: Negative - dizziness All Other Systems Reviewed And Are Negative: Yes Physical Exam - Summary Physical Exam Summary: Constitutional: Well-developed, Well-nourished, Alert. (-) Distressed Skin: Warm, Dry HENT: Normocephalic; Atraumatic Eyes: Conjunctiva normal Neck: Musculoskeletal ROM normal neck. (-) JVD, (-) Stridor, (-) Tracheal deviation Cardio: Rhythm regular, rate normal, Heart sounds normal; Intact distal pulses; The pedal pulses are 2+ and symmetric. Radial pulses are 2+ and symmetric. (-) Murmur Pulmonary/Chest wall: tachypnea. (+) Respiratory distress, (+) Wheezes, (-) Rales Abd: Soft, (-) Tenderness, (-) Distension, (-) Guarding, (-) Rebound Musculoskeletal: (-) Edema Lymph: (-) Cervical adenopathy Neuro: Alert, Oriented x3 Psych: Mood and affect Normal Triage Information Reviewed: Yes Vital Signs Reviewed: Yes - [place] Coma Scale Coma Scale Total: 15 Diagnostics - Laboratory Result Diagrams: 08/25/17 14:12 08/25/17 14:12 Lab Statement: Any lab studies that have been ordered have been reviewed, and results considered in the medical decision making process. - Radiology CXR Radiology Interpretation Completed By: Radiologist - 1. No radiographically apparent acute cardiopulmonary abnormality. 2. Incidentally noted are air- filled loops of bowel beneath the right hemidiaphragm. Please correlate to any potential GI symptoms. ED physician has reviewed this radiology report. - EKG 13:35 Cardiac Rate: Tachycardia EKG Rhythm: Sinus Tachycardia - at 99 BPM EKG Interpretation: No STEMI Re-Evaluation - Re-Evaluation First Eval Re-Evaluation Time: 15:46 Change: Improved - Patient has improved respiratory effort. I suspect the ABD pain is due to muscle wall strain from coughing. There is no rebound, tenderness , or guarding. Course/Dx - Course Assessment/Plan: This patient is a 57 year old M [place] [facility] [place] his with a chief complaint of SOB since 08/24/16. The patient rates the pain 9/10 in severity. Patient reports ABD pain, cough, chills , diaphoresis, CP, fever, and diarrhea. Patient denies vomiting. Patient states his symptoms started with a cold but have gotten worse. Patient has a history of COPD and muscular dystrophy. CXR reveals, per radiologist, 1. No radiographically apparent acute cardiopulmonary abnormality. 2. Incidentally noted are air-filled loops of bowel beneath the right hemidiaphragm. Please correlate to any potential GI symptoms. Test results with no significant abnormalities. In the ED course the patient was given Maalox, Duoneb, Lovenox, and albuterol. I do not suspect an acute surgical abdomen. The fever is likely due to flu like illness which has manifested in respiratory symptoms and diarrhea. I suspect the rapid flu is a false negative. Patient had a temperature of 102 f. Patient will be [place] [facility] The patient is agreeable with this plan. - Diagnoses Provider Diagnoses: SOB (shortness of breath), Influenza-like illness - Physician Notifications Discussed Care of Patient With: Shiela Ramos Time Discussed With Above Provider: 14:49 Instructed by Provider To: Admit As Inpatient Discharge - Discharge Plan Condition: Fair Disposition: ADMITTED TO [facility] documentation as recorded by the Jose jarvis Gabriel accurately reflects the service I personally performed and the decisions made by me, Vinod Watkins MD.
== END 2017-08-27 15:45 | disposition home or self-care (01) | DRG 133 ==
LOC: ED 13:32 → ICU 15:30 → MED 08-26 15:28
PROVIDERS: ADMIT Internal Medicine; ATTEND Internal Medicine
PROC: 5A09357 Assistance with Respiratory Ventilation, Less than 24 Consecutive Hours, Continuous Positive Airway Pressure (ICD-10-PCS; principal; 2017-08-25)
DX: J96.01 Acute respiratory failure with hypoxia (principal); G60.0 Hereditary motor and sensory neuropathy; J44.1 Chronic obstructive pulmonary disease with (acute) exacerbation; I10 Essential (primary) hypertension; E78.5 Hyperlipidemia, unspecified; F17.210 Nicotine dependence, cigarettes, uncomplicated; L03.032 Cellulitis of left toe; L89.619 Pressure ulcer of right heel, unspecified stage; L89.899 Pressure ulcer of other site, unspecified stage; Z79.899 Other long term (current) drug therapy
CPT/HCPCS: 36415; 36600; 71045; 71275; 74174; 80048; 80053; 80202; 82803; 83605; 83880; 84484; 85025; 87040; 87070; 87205; 87502; 87641; 87899; 90686; 90732; 93005; 94640; 94660; 94760; 99284; A9270-GY; J0456; J1650; J2270; J2405; J2920; J2930; J3370; Q9967

== ENCOUNTER 2018-09-29 12:20 | Emergency (ER) | payer BC ==
[2018-09-29 12:47] VITALS: BP 138/93
--- NOTE | 2018-09-29 12:49 | UC ---
Respiratory Complaint HPI - HPI Summary HPI Summary: 58 yo male presents with cough since last night. He tells me that he has a history of COPD and smokes daily. Last night began coughing and had productive yellow sputum, but then turned to bright and dark red blood. Now every times he coughs he will get a quarter sized chunk of bloody phlegm. He is feeling well otherwise. Denies fever, chills, sinus symptoms, SOB, chest pain. No recent bloody noses - History of Current Complaint Chief Complaint: UCRespiratory Stated Complaint: COUGHING UP BLOOD Time Seen by Provider: 09/29/18 12:49 Hx Obtained From: Patient Onset/Duration: Sudden Onset Severity Currently: None Pain Intensity: 0 Character: Cough: Productive - Allergies/Home Medications Allergies/Adverse Reactions: Allergies Allergy/AdvReac Type Severity Reaction Status Date / Time No Known Allergies Allergy Verified 09/29/18 12:47 Home Medications: Home Medications Ibuprofen 600 mg PO ONCE PRN 09/29/18 [History Confirmed 09/29/18] PMH/Surg Hx/FS Hx/Imm Hx Respiratory History: COPD Other History Of: Negative For: HIV, Hepatitis B, Hepatitis C, Anticoagulant Therapy - Surgical History Surgical History: None - Family History Known Family History: Positive: Cardiac Disease, Other - CVA Negative: Diabetes - Social History Lives: With Family Alcohol Use: None Substance Use Type: None Smoking Status (MU): Current Every Day Smoker Type: Cigarettes Amount Used/How Often: 1 PPD Length of Time of Smoking/Using Tobacco: 42+ YEARS Household Exposure Type: Cigarettes - Immunization History Most Recent Influenza Vaccination: 2011 Most Recent Tetanus Shot: possibly in last 6-7 yrs ago Most Recent Pneumonia Vaccination: none Review of Systems All Other Systems Reviewed And Are Negative: Yes Constitutional: Positive: Negative Skin: Positive: Negative Eyes: Positive: Negative ENT: Positive: Negative Respiratory: Positive: Cough Cardiovascular: Positive: Negative Gastrointestinal: Positive: Negative Neurovascular: Positive: Negative Neurological: Positive: Negative Psychological: Positive: Negative Physical Exam - Summary Physical Exam Summary: GENERAL: NAD. WDWN. No pain distress. SKIN: No rashes, sores, lesions, or open wounds. HEENT: Head: AT/NC Eyes: Conjunctiva clear without inflammation or discharge. Ears: Hearing grossly normal. TMs intact, no bulging, erythema, or edema. Nose: Nasal mucosa pink and moist. NTTP maxillary and frontal sinus. Throat: Posterior oropharynx without exudates, erythema, or tonsillar enlargement. Uvula midline. NECK: Supple. Nontender. No lymphadenopathy. CHEST: Distant breath sounds throughout. No r/r. No accessory muscle use. Breathing comfortably and in no distress. CV: RRR. Without m/r/g. Pulses intact. Cap refill <2seconds NEURO: Alert. PSYCH: Age appropriate behavior. Triage Information Reviewed: Yes Vital Signs: Initial Vital Signs Temp 99.2 F 09/29/18 12:42 Pulse 82 09/29/18 12:42 Resp 18 09/29/18 12:42 BP 138/93 09/29/18 12:42 Pulse Ox 98 09/29/18 12:42 Laboratory Tests 09/29/18 13:09 Influenza A (Rapid) Negative Influenza B (Rapid) Negative Vital Signs Reviewed: Yes UC Diagnostic Evaluation - Laboratory O2 Sat by Pulse Oximetry: 98 Respiratory Course/Dx - Course Course Of Treatment: IMPRESSION: HYPERINFLATION, CONSISTENT WITH COPD. NO ACTIVE CARDIOPULMONARY DISEASE. Pt was able to provide a sputum culture today, therefore will send this for culture and treat him prophylactically with doxycycline. Strongly advised to f/u with his PCP as soon as possible for a recheck. - Differential Dx/Diagnosis Provider Diagnosis: Hemoptysis, COPD (chronic obstructive pulmonary disease) Discharge - Sign-Out/Discharge Documenting (check all that apply): Patient Departure All imaging exams completed and their final reports reviewed: Yes - Discharge Plan Condition: Stable Disposition: HOME Prescriptions: DOXYcycline CAP(*) [DOXYcycline 100MG CAP(*)] 100 mg PO BID #20 cap Patient Education Materials: Hemoptysis (ED) Referrals: Yuli Maldonado MD [Primary Care Provider] - Additional Instructions: If you develop a fever, shortness of breath, chest pain, new or worsening symptoms - please call your PCP or go to the ED. Your blood pressure was high at todays visit. Please see your primary provider within 4 weeks for recheck and re-evaluation. - Billing Disposition and Condition Condition: STABLE Disposition: Home
[2018-09-29 13:21] LABS: Influenza A Molecular NEGATIVE (Negative); Influenza B Molecular NEGATIVE (Negative)
== END 2018-09-29 14:05 | disposition home or self-care (01) ==
LOC: UCEAST 12:20
DX: R04.2 Hemoptysis (principal); J44.9 Chronic obstructive pulmonary disease, unspecified; F17.210 Nicotine dependence, cigarettes, uncomplicated
CPT/HCPCS: 71046; 87070; 87205; 99213; G0463

== ENCOUNTER 2024-03-20 16:40 | Inpatient (IN) ==
[2024-03-20] MEDS ORDERED: Ondansetron 4 mg VIAL 2 MG/ML 2 ml VIAL ONE (16:57)
[2024-03-20] MEDS ORDERED: fentaNYL 100 mcg/2 ml 50 MCG/ML VIAL ONE ×4 (16:57→22:37)
[2024-03-20 17:14] LABS: Hematocrit 42.6 % (38-53); Hemoglobin 14.4 g/dL (13.2-16.3); Mean Corpuscular Hgb Conc 33.8 g/dL (31-36); Mean Platelet Volume 9.8 fL (7.5-11.2); Platelet Count 268 10^3/uL (150-450); Red Blood Count 5.32 10^6/uL (4.06-5.63); Red Cell Distribution Width 15.3 % (12-17); White Blood Count 20.6 10^3/uL (3.6-10.2)
[2024-03-20] MEDS: fentaNYL 100 mcg/2 ml 50 MCG/ML VIAL IV SLOW PU ONE ×2 (17:14→17:34)
[2024-03-20 17:22] LABS: INR 1.36 (0.83-1.13)
[2024-03-20] MEDS: Iodixanol (CONTRAST) 320 MG/ML 100 ML SDV IV ONE (17:25)
[2024-03-20] MEDS: NS 0.9% 1000 ml BAG 1,000 ML IV ONE (17:34)
[2024-03-20] MEDS: Ondansetron 4 mg VIAL 2 MG/ML 2 ml VIAL IV ONE ×2 (17:35→18:52)
[2024-03-20 18:00] LABS: Albumin 4.1 g/dL (3.2-5.2); Albumin/Globulin Ratio 1.2 (1-3); Calcium 10.3 mg/dL (8.6-10.3); Creatinine, Serum 1.7 mg/dL (0.67-1.17); Globulin 3.4 g/dL (2-4); Potassium 3.6 mmol/L (3.5-5.0); Total Bilirubin 0.6 mg/dL (0.2-1.0); Total Protein 7.5 g/dL (6.4-8.9); eGFR CKD-EPI 43.9 (>60)
[2024-03-20] MEDS ORDERED: KCL 20 MEQ/100 ML IVPREMIX 20 MEQ/100 ML BAG IV SCH (18:00)
[2024-03-20] MEDS: Pantoprazole VIAL 40 MG VIAL IV ONE (18:03)
[2024-03-20 18:11] LABS: ABS Basophils 0.3 10^3/uL (0.0-0.1); ABS Lymphocytes 1.8 10^3/uL (1.0-4.8); ABS Monocytes 1.8 10^3/uL (0.0-1.1); ABS Neutrophils 16.7 10^3/uL (1.5-7.6); ABS Nucleated RBC 0.01 10^3/ul; Eosinophil % 0.1 %; Lymphocyte % 8.6 %
[2024-03-20] MEDS ORDERED: Succinylcholine 200 mg VIAL 20 mg/ml 10 ml VIAL (200 mg) ONE (18:54)
[2024-03-20] MEDS ORDERED: Propofol 10 MG/ML 20 ML BTL ONE (18:54)
[2024-03-20] MEDS ORDERED: Midazolam 2 mg/2 ml VIAL 1 mg/ml 2 ml VIAL (2 mg) ONE (18:55)
[2024-03-20] MEDS ORDERED: Lidocaine 2% PF 5 ML VIAL ONE (18:55)
[2024-03-20 18:59] LABS: High Sensitivity Troponin 1 Hr 13 pg/mL (<20)
[2024-03-20] MEDS: ceFOXitin 2 GM IVPREMIX 2 GM/50 ML BAG IVPB ONE (19:39)
[2024-03-20] MEDS ORDERED: Levalbuterol 1.25MG/0.5ML NEB.SOL ONE (20:13)
[2024-03-20] MEDS: Levalbuterol 1.25MG/0.5ML NEB.SOL INH PRN (20:19)
[2024-03-20] MEDS ORDERED: Rocuronium 50 mg VIAL 10 mg/ml 5 ml VIAL (50 mg) ONE ×2 (20:47→21:42)
[2024-03-20] MEDS ORDERED: KETAMINE HCL 10 MG/ML 20 ml VIAL (200 MG) ONE (20:52)
[2024-03-20] MEDS: fentaNYL INFUSION 50 mcg/mL VL 2,500 MCG/50 ML VIAL IV SCH (23:02)
[2024-03-20] MEDS: Propofol 10 mg/ml 100 ML BTL 1,000 MG/100 ML BTL IV SCH (23:05)
[2024-03-20] MEDS: Propofol 10 mg/ml 100 ML BTL 1,000 MG/100 ML BTL ONE (23:05)
[2024-03-20] MEDS: Pantoprazole VIAL 40 MG VIAL IV SCH (23:30)
[2024-03-20] MEDS: Lactated Ringers 1000 ml BAG 1,000 ML IV SCH (23:30)
[2024-03-20] MEDS: guaiFENesin/CODIENE 100mg/10mg 5 ML UDC PO PRN (23:30)
[2024-03-21] MEDS: Enoxaparin 40 MG/0.4 ML SYR SUBCUT SCH (00:09)
[2024-03-21 00:28] LABS: Urine Appearance Clear; Urine Bacteria Absent /HPF (Absent); Urine Bilirubin Negative (Negative); Urine Blood Negative (Negative); Urine Color Yellow; Urine Glucose Negative (Negative); Urine Ketones 1+ (Negative); Urine Nitrite Negative (Negative); Urine Protein 1+ (>=30 mg/dL) (Negative); Urine Red Blood Cell Absent /HPF (0-Trace); Urine Specific Gravity >1.050 (1.002-1.030); Urine Urobilinogen Negative (Negative); Urine White Blood Cell Absent /HPF (0-Trace)
[2024-03-21] MEDS: ceFAZolin 1 GM in Dextrose 1 GM/50 ML BAG IVPB SCH (01:08)
[2024-03-21] MEDS: Chlorhexidine MOUTHWASH 0.12% 15 ML UDC TOPICAL SCH (01:08)
[2024-03-21] MEDS: Scopolamine 1 mg/72hr PATCH TRANSDERM SCH (05:18)
[2024-03-21 06:37] LABS: ABS Lymphocytes 0.7 10^3/uL (1.0-4.8); ABS Monocytes 0.9 10^3/uL (0.0-1.1); ABS Neutrophils 11.7 10^3/uL (1.5-7.6); ABS Nucleated RBC 0.01 10^3/ul; Hemoglobin 11.3 g/dL (13.2-16.3); Lymphocyte % 5.4 %; Mean Corpuscular Hemoglobin 26.9 pg (27-33); Mean Corpuscular Hgb Conc 33.4 g/dL (31-36); Mean Corpuscular Volume 80.6 fL (80-97); Mean Platelet Volume 9.9 fL (7.5-11.2); Nucleated Red Blood Cells % 0.1 %/100WBC (0.0-0.8); Platelet Count 178 10^3/uL (150-450); Red Blood Count 4.21 10^6/uL (4.06-5.63); Red Cell Distribution Width 15.2 % (12-17); White Blood Count 13.3 10^3/uL (3.6-10.2)
[2024-03-21 08:32] LABS: Albumin 2.9 g/dL (3.2-5.2); Albumin/Globulin Ratio 1.2 (1-3); Calcium 8.1 mg/dL (8.6-10.3); Creatinine, Serum 1.03 mg/dL (0.67-1.17); Globulin 2.4 g/dL (2-4); Magnesium 1.7 mg/dL (1.9-2.7); Phosphorus 5.3 mg/dL (2.5-5.0); Potassium 3.8 mmol/L (3.5-5.0); Total Bilirubin 0.5 mg/dL (0.2-1.0); Total Protein 5.3 g/dL (6.4-8.9); eGFR CKD-EPI 80.1 (>60)
[2024-03-21 08:42] LABS: Venous Bicarbonate HCO3 24.5 mmol/L (24-28)
[2024-03-21] MEDS ORDERED: Albuterol/Ipratropium NEB.SOL (2.5/0.5 MG) 3 ML NEB.SOLN INH PRN (08:58)
[2024-03-21] MEDS: Magnesium Sulfate 2 gm BAG 2 GM/50 ML BAG IVPB ONE (13:02)
[2024-03-21] MEDS: Magnesium Sulfate IV 1GM/100ML 1 GM/100 ML BAG IV ONE (14:19)
[2024-03-21] MEDS: Albuterol/Ipratropium NEB.SOL (2.5/0.5 MG) 3 ML NEB.SOLN INH SCH (15:56)
[2024-03-21] MEDS: DULoxetine DR 30 mg CAP PO SCH (16:51)
[2024-03-21] MEDS: Morphine 2 MG/ML SYRINGE IV PRN (16:52)
[2024-03-21] MEDS ORDERED: Benzocaine/Menthol LOZ PO PRN (22:29)
[2024-03-22 04:54] LABS: ABS Lymphocytes 0.8 10^3/uL (1.0-4.8); ABS Monocytes 0.6 10^3/uL (0.0-1.1); ABS Neutrophils 5.1 10^3/uL (1.5-7.6); Eosinophil % 0.6 %; Hemoglobin 10.7 g/dL (13.2-16.3); Lymphocyte % 12.5 %; Mean Corpuscular Hemoglobin 26.8 pg (27-33); Mean Corpuscular Hgb Conc 33.3 g/dL (31-36); Mean Corpuscular Volume 80.7 fL (80-97); Mean Platelet Volume 9.2 fL (7.5-11.2); Platelet Count 140 10^3/uL (150-450); Red Blood Count 3.97 10^6/uL (4.06-5.63); Red Cell Distribution Width 15.5 % (12-17); White Blood Count 6.6 10^3/uL (3.6-10.2)
[2024-03-22 05:54] LABS: Albumin 2.8 g/dL (3.2-5.2); Albumin/Globulin Ratio 1.3 (1-3); Calcium 7.6 mg/dL (8.6-10.3); Creatinine, Serum 0.71 mg/dL (0.67-1.17); Globulin 2.2 g/dL (2-4); Phosphorus 2.4 mg/dL (2.5-5.0); Potassium 3.5 mmol/L (3.5-5.0); Total Bilirubin 0.5 mg/dL (0.2-1.0); eGFR CKD-EPI 101.2 (>60)
[2024-03-22] MEDS: KCL 20 MEQ/100 ML IVPREMIX 20 MEQ/100 ML BAG IV SCH (07:41)
[2024-03-22] MEDS ORDERED: Albuterol HFA INHALER 8 gm MDI INH PRN (09:50)
[2024-03-22] MEDS: SPIRIVA Respimat (tiotropium) 2.5 mcg/inh Inhaler INH SCH (13:11)
[2024-03-22] MEDS: Mometasone 220 MCG MDI INH SCH (20:02)
[2024-03-22] MEDS: Albuterol/Ipratropium NEB.SOL (2.5/0.5 MG) 3 ML NEB.SOLN INH PRN (20:31)
[2024-03-22] MEDS: Sodium Chloride(INHALANT)0.9% 5 ML NEB.SOLN INH PRN (20:31)
[2024-03-23] MEDS ORDERED: Calcium Carb (TUMS) 500 mg CHEW TAB PO PRN (01:44)
[2024-03-23 05:58] LABS: ABS Basophils 0.1 10^3/uL (0.0-0.1); ABS Eosinophils 0.2 10^3/uL (0.0-0.5); ABS Lymphocytes 0.8 10^3/uL (1.0-4.8); ABS Monocytes 0.6 10^3/uL (0.0-1.1); ABS Neutrophils 5.5 10^3/uL (1.5-7.6); ABS Nucleated RBC 0.01 10^3/ul; Eosinophil % 2.3 %; Hematocrit 35.7 % (38-53); Hemoglobin 11.7 g/dL (13.2-16.3); Lymphocyte % 10.7 %; Mean Corpuscular Hemoglobin 26.7 pg (27-33); Mean Corpuscular Hgb Conc 32.9 g/dL (31-36); Mean Corpuscular Volume 81.2 fL (80-97); Mean Platelet Volume 10.1 fL (7.5-11.2); Nucleated Red Blood Cells % 0.1 %/100WBC (0.0-0.8); Platelet Count 135 10^3/uL (150-450); Red Cell Distribution Width 14.8 % (12-17); White Blood Count 7.1 10^3/uL (3.6-10.2)
[2024-03-23 06:30] LABS: Albumin 2.9 g/dL (3.2-5.2); Albumin/Globulin Ratio 1.2 (1-3); Calcium 8.1 mg/dL (8.6-10.3); Creatinine, Serum 0.64 mg/dL (0.67-1.17); Globulin 2.5 g/dL (2-4); Magnesium 1.9 mg/dL (1.9-2.7); Phosphorus 3.1 mg/dL (2.5-5.0); Potassium 3.7 mmol/L (3.5-5.0); Total Bilirubin 0.6 mg/dL (0.2-1.0); Total Protein 5.4 g/dL (6.4-8.9); eGFR CKD-EPI 104.4 (>60)
[2024-03-23] MEDS: Ondansetron 4 mg VIAL 2 MG/ML 2 ml VIAL IV PRN (11:14)
[2024-03-23] MEDS: Metoclopramide 5 MG/ML VIAL (10 mg) IV SLOW PU ONE (14:45)
[2024-03-23] MEDS: Heparin 5000 UNITS/ML 1 mL VIAL SUBCUT SCH (16:52)
[2024-03-23] MEDS ORDERED: Prochlorperazine 5 mg/ml 2 ml VIAL (10 mg) IV PRN (18:00)
[2024-03-23] MEDS: Morphine 2 MG/ML SYRINGE IV PRN (22:08)
[2024-03-23] MEDS: Acetaminophen IV 1 GM/100ML 1,000 MG/100 ML BAG IV PRN (22:17)
[2024-03-24 06:39] LABS: ABS Eosinophils 0.2 10^3/uL (0.0-0.5); ABS Lymphocytes 0.5 10^3/uL (1.0-4.8); ABS Monocytes 0.7 10^3/uL (0.0-1.1); ABS Neutrophils 4.4 10^3/uL (1.5-7.6); Eosinophil % 3.6 %; Hematocrit 37.7 % (38-53); Hemoglobin 12.3 g/dL (13.2-16.3); Lymphocyte % 8.2 %; Mean Corpuscular Hemoglobin 26.6 pg (27-33); Mean Corpuscular Hgb Conc 32.6 g/dL (31-36); Mean Corpuscular Volume 81.4 fL (80-97); Platelet Count 158 10^3/uL (150-450); Red Blood Count 4.64 10^6/uL (4.06-5.63); Red Cell Distribution Width 15.3 % (12-17); White Blood Count 5.8 10^3/uL (3.6-10.2)
[2024-03-24 07:06] LABS: Calcium 8.1 mg/dL (8.6-10.3); Creatinine, Serum 0.69 mg/dL (0.67-1.17); Potassium 3.5 mmol/L (3.5-5.0); eGFR CKD-EPI 102.1 (>60)
[2024-03-24] MEDS ORDERED: Dextrose 50% Syringe 50 ml 25 GM/50 ML SYRINGE IV PUSH PRN (07:12)
[2024-03-24] MEDS: D5W 1/2 NS KCl 20 meq 1000 ml 1,000 ML IV SCH (07:45)
[2024-03-24] MEDS: Nicotine GUM 4MG FRUIT FLAVOR PO ONE (17:24)
[2024-03-25 08:17] LABS: ABS Eosinophils 0.2 10^3/uL (0.0-0.5); ABS Lymphocytes 0.7 10^3/uL (1.0-4.8); ABS Monocytes 0.6 10^3/uL (0.0-1.1); ABS Neutrophils 4.7 10^3/uL (1.5-7.6); ABS Nucleated RBC 0.01 10^3/ul; Eosinophil % 3.6 %; Hematocrit 34.7 % (38-53); Hemoglobin 11.5 g/dL (13.2-16.3); Lymphocyte % 10.9 %; Mean Corpuscular Hemoglobin 26.8 pg (27-33); Mean Corpuscular Hgb Conc 33.2 g/dL (31-36); Mean Corpuscular Volume 80.7 fL (80-97); Mean Platelet Volume 9.2 fL (7.5-11.2); Nucleated Red Blood Cells % 0.1 %/100WBC (0.0-0.8); Platelet Count 153 10^3/uL (150-450); Red Cell Distribution Width 15.2 % (12-17); White Blood Count 6.3 10^3/uL (3.6-10.2)
[2024-03-25 08:55] LABS: Calcium 7.6 mg/dL (8.6-10.3); Creatinine, Serum 0.53 mg/dL (0.67-1.17); Potassium 3.6 mmol/L (3.5-5.0); eGFR CKD-EPI 110.5 (>60)
[2024-03-26] MEDS: Nicotine GUM 2MG FRUIT FLAVOR PO PRN (00:59)
[2024-03-26 14:28] VITALS: BP 117/75
== END 2024-03-26 18:40 | disposition home or self-care (01) | DRG 221 ==
LOC: ED 16:40 → EDHOLD 19:37 → SDS 19:37 → EDHOLD 19:54 → ICU 22:51 → SSU 03-22 10:01
PROVIDERS: ADMIT Surgery; ATTEND Surgery

== ENCOUNTER 2024-04-15 03:21 | Inpatient (IN) ==
[2024-04-15 04:05] LABS: ABS Basophils 0.2 10^3/uL (0.0-0.1); ABS Eosinophils 0.3 10^3/uL (0.0-0.5); ABS Lymphocytes 1.4 10^3/uL (1.0-4.8); ABS Monocytes 0.8 10^3/uL (0.0-1.1); ABS Neutrophils 5.4 10^3/uL (1.5-7.6); ABS Nucleated RBC 0.01 10^3/ul; Hematocrit 35.9 % (38-53); Hemoglobin 11.6 g/dL (13.2-16.3); Mean Corpuscular Hgb Conc 32.4 g/dL (31-36); Mean Corpuscular Volume 80.3 fL (80-97); Mean Platelet Volume 8.8 fL (7.5-11.2); Nucleated Red Blood Cells % 0.2 %/100WBC (0.0-0.8); Platelet Count 273 10^3/uL (150-450); Red Blood Count 4.47 10^6/uL (4.06-5.63)
[2024-04-15 04:09] LABS: INR 1.21 (0.85-1.14)
[2024-04-15 04:24] LABS: Albumin 3.5 g/dL (3.2-5.2); Albumin/Globulin Ratio 1.1 (1-3); Calcium 9.1 mg/dL (8.6-10.3); Creatinine, Serum 0.61 mg/dL (0.67-1.17); Globulin 3.3 g/dL (2-4); Total Bilirubin 0.3 mg/dL (0.2-1.0); Total Protein 6.8 g/dL (6.4-8.9); eGFR CKD-EPI 105.9 (>60)
[2024-04-15] MEDS: Iohexol 350 (CONTRAST) 500 ML MDV IV ONE (04:46)
[2024-04-15] MEDS: Morphine 4 MG/ML VIAL (1 ml) IV ONE ×3 (04:56→18:28)
[2024-04-15] MEDS: Ondansetron 4 mg VIAL 2 MG/ML 2 ml VIAL IV ONE (04:56)
[2024-04-15 05:31] LABS: High Sensitivity Troponin 1 Hr 3 pg/mL (<20)
[2024-04-15 06:26] LABS: Urine Appearance Clear; Urine Bilirubin Negative (Negative); Urine Blood Negative (Negative); Urine Color Light-Yellow; Urine Glucose Negative (Negative); Urine Ketones Negative (Negative); Urine Nitrite Negative (Negative); Urine Protein Negative (Negative); Urine Specific Gravity 1.047 (1.002-1.030); Urine Urobilinogen Negative (Negative)
[2024-04-15] MEDS ORDERED: niCARdipine 0.1MG/ML IVPREMIX 20 MG/200 ML BAG IV ONE (08:00)
[2024-04-15] MEDS: Labetalol IV 5 MG/ML 20 ml VIAL IV PUSH ONE (08:02)
[2024-04-15] MEDS: niCARdipine 0.1MG/ML IVPREMIX 20 MG/200 ML BAG IV SCH (08:05)
[2024-04-15] MEDS: Nicotine PATCH 21 MG/24 HR PATCH TRANSDERM ONE (16:58)
[2024-04-15 19:14] LABS: C Reactive Protein 25.92 mg/L (<8.01)
[2024-04-15] MEDS ORDERED: Albuterol/Ipratropium NEB.SOL (2.5/0.5 MG) 3 ML NEB.SOLN INH PRN (19:38)
[2024-04-15] MEDS ORDERED: Albuterol HFA INHALER 8 gm MDI INH PRN (19:39)
[2024-04-15] MEDS ORDERED: Senna TAB 8.6 mg TAB PO PRN (19:50)
[2024-04-15] MEDS ORDERED: Polyethylene Glycol 3350 17 GM PACKET PO PRN (19:50)
[2024-04-15] MEDS: Lidocaine PATCH 5% PATCH TRANSDERM ONE (20:26)
[2024-04-15] MEDS: SPIRIVA Respimat (tiotropium) 2.5 mcg/inh Inhaler INH SCH (20:44)
[2024-04-15] MEDS: Mometasone 220 MCG MDI INH SCH (20:45)
[2024-04-15] MEDS: Lactated Ringers 1000 ml BAG 1,000 ML IV ONE (23:09)
[2024-04-15] MEDS: Lactulose 30 ml UDC PO SCH (23:17)
[2024-04-15] MEDS: Calcium Carb (TUMS) 500 mg CHEW TAB PO PRN (23:58)
[2024-04-16] MEDS: cefTRIAXone 2 gm/50 mL D5W 2 GM/50 ML BAG IV SCH (00:29)
[2024-04-16] MEDS: Acetaminophen IV 1 GM/100ML 1,000 MG/100 ML BAG IV PRN (01:35)
[2024-04-16] MEDS: Enoxaparin 40 MG/0.4 ML SYR SUBCUT SCH (05:22)
[2024-04-16 06:35] LABS: ABS Basophils 0.1 10^3/uL (0.0-0.1); ABS Eosinophils 0.2 10^3/uL (0.0-0.5); ABS Lymphocytes 1.3 10^3/uL (1.0-4.8); ABS Monocytes 0.8 10^3/uL (0.0-1.1); ABS Neutrophils 7.6 10^3/uL (1.5-7.6); ABS Nucleated RBC 0.01 10^3/ul; Eosinophil % 1.8 %; Hematocrit 36.3 % (38-53); Lymphocyte % 12.6 %; Mean Corpuscular Hemoglobin 26.5 pg (27-33); Mean Corpuscular Hgb Conc 33.2 g/dL (31-36); Nucleated Red Blood Cells % 0.1 %/100WBC (0.0-0.8); Platelet Count 260 10^3/uL (150-450); Red Blood Count 4.53 10^6/uL (4.06-5.63); Red Cell Distribution Width 16.1 % (12-17); White Blood Count 9.9 10^3/uL (3.6-10.2)
[2024-04-16 07:30] LABS: Calcium 8.8 mg/dL (8.6-10.3); Creatinine, Serum 0.55 mg/dL (0.67-1.17); Magnesium 1.8 mg/dL (1.9-2.7); Potassium 4.1 mmol/L (3.5-5.0); eGFR CKD-EPI 109.3 (>60)
[2024-04-16] MEDS: Vancomycin 1,000 MG in NS 0.9% 250 ml 250 ML IVPB ONE (08:07)
[2024-04-16] MEDS: SPIRIVA Respimat (tiotropium) 2.5 mcg/inh Inhaler INH SCH (08:56)
[2024-04-16] MEDS: Mometasone 220 MCG MDI INH SCH (08:56)
[2024-04-16] MEDS: Magnesium Sulfate 2 gm BAG 2 GM/50 ML BAG IVPB ONE (10:41)
[2024-04-16] MEDS: Aspirin EC 81 mg TAB.EC (enteric coated) PO SCH (10:58)
[2024-04-16] MEDS: DULoxetine DR 60 mg CAP PO SCH (11:11)
[2024-04-16] MEDS: DULoxetine DR 30 mg CAP PO SCH (11:11)
[2024-04-16] MEDS ORDERED: Polyethylene Glycol 3350 17 GM PACKET PO PRN (11:35)
[2024-04-16] MEDS: Azithromycin 500 mg/250 ml NS 500 MG/250 ML BAG IVPB SCH (11:48)
[2024-04-16] MEDS: Ondansetron 4 mg VIAL 2 MG/ML 2 ml VIAL IV PRN (13:29)
[2024-04-16] MEDS ORDERED: Lactulose 30 ml UDC PO SCH (14:00)
[2024-04-16] MEDS: Albuterol/Ipratropium NEB.SOL (2.5/0.5 MG) 3 ML NEB.SOLN INH SCH (14:44)
[2024-04-16] MEDS: Magnesium Hydroxide LIQ 30 ML UDC PO PRN (17:25)
[2024-04-16] MEDS: Polyethylene Glycol 3350 17 GM PACKET PO SCH (17:25)
[2024-04-16] MEDS: Lactated Ringers 1000 ml BAG 1,000 ML IV SCH (17:26)
[2024-04-16] MEDS: Senna TAB 8.6 mg TAB PO SCH (21:08)
[2024-04-16] MEDS: Nicotine PATCH 7 MG/24 HR PATCH TRANSDERM PRN (22:26)
[2024-04-17] MEDS: Morphine 2 MG/ML SYRINGE IV PRN (05:36)
[2024-04-17 06:08] LABS: ABS Lymphocytes 0.8 10^3/uL (1.0-4.8); ABS Monocytes 0.9 10^3/uL (0.0-1.1); ABS Neutrophils 8.8 10^3/uL (1.5-7.6); Eosinophil % 0.1 %; Hematocrit 33.1 % (38-53); Lymphocyte % 7.9 %; Mean Corpuscular Hemoglobin 26.5 pg (27-33); Mean Corpuscular Hgb Conc 33.2 g/dL (31-36); Mean Corpuscular Volume 79.8 fL (80-97); Mean Platelet Volume 8.8 fL (7.5-11.2); Platelet Count 248 10^3/uL (150-450); Red Blood Count 4.15 10^6/uL (4.06-5.63); Red Cell Distribution Width 15.8 % (12-17); White Blood Count 10.5 10^3/uL (3.6-10.2)
[2024-04-17 07:36] LABS: ALT 5 U/L (7-52); AST 10 U/L (13-39); Albumin 3.3 g/dL (3.2-5.2); Albumin/Globulin Ratio 1.1 (1-3); Alkaline Phosphatase 122 U/L (35-149); Anion Gap 14 mmol/L (2-16); Blood Urea Nitrogen 18 mg/dL (6-24); CO2 Carbon Dioxide 27 mmol/L (22-32); Calcium 8.6 mg/dL (8.6-10.3); Chloride 97 mmol/L (101-111); Creatinine, Serum 0.58 mg/dL (0.67-1.17); Globulin 3.1 g/dL (2-4); Glucose 105 mg/dL (70-100); Magnesium 2.2 mg/dL (1.9-2.7); Potassium 4.6 mmol/L (3.5-5.0); Sodium 138 mmol/L (135-145); Total Bilirubin 0.4 mg/dL (0.2-1.0); Total Protein 6.4 g/dL (6.4-8.9); eGFR CKD-EPI 107.6 (>60)
[2024-04-17 11:10] LABS: % Iron Saturation 8 % (15-55); .Transferrin 185 mg/dL (203-362); Iron < 20 ug/dL (50-212); Total Iron Binding Capacity 259 mcg/dL (250-450); Unsaturated Iron Binding 239 ug/dL
[2024-04-17 11:32] LABS: Ferritin 72.8 ng/mL (24-336)
[2024-04-17 11:36] LABS: Folate 6.14 ng/mL (5.90-24.80)
[2024-04-17 11:37] LABS: Vitamin B12 310 pg/mL (180-914)
[2024-04-17] MEDS: Ferric Gluconate IV 250 MG in NS 0.9% 250 ml 200 ML IVPB SCH (12:53)
[2024-04-17] MEDS ORDERED: Polyethylene Glycol 3350 17 GM PACKET PO PRN (22:02)
[2024-04-17] MEDS ORDERED: Senna TAB 8.6 mg TAB PO PRN (22:04)
[2024-04-17] MEDS ORDERED: Lactulose 30 ml UDC PO PRN (22:05)
[2024-04-18 06:17] LABS: ABS Basophils 0.1 10^3/uL (0.0-0.1); ABS Lymphocytes 1.2 10^3/uL (1.0-4.8); ABS Monocytes 0.9 10^3/uL (0.0-1.1); ABS Neutrophils 7.8 10^3/uL (1.5-7.6); ABS Nucleated RBC 0.01 10^3/ul; Eosinophil % 0.2 %; Hematocrit 33.9 % (38-53); Hemoglobin 11.2 g/dL (13.2-16.3); Lymphocyte % 12.2 %; Mean Corpuscular Hemoglobin 26.4 pg (27-33); Mean Corpuscular Hgb Conc 32.9 g/dL (31-36); Mean Corpuscular Volume 80.3 fL (80-97); Mean Platelet Volume 9.1 fL (7.5-11.2); Nucleated Red Blood Cells % 0.1 %/100WBC (0.0-0.8); Platelet Count 276 10^3/uL (150-450); Red Blood Count 4.22 10^6/uL (4.06-5.63)
[2024-04-18 07:03] LABS: Calcium 8.7 mg/dL (8.6-10.3); Creatinine, Serum 0.56 mg/dL (0.67-1.17); Magnesium 2.1 mg/dL (1.9-2.7); eGFR CKD-EPI 108.7 (>60)
[2024-04-18 10:01] VITALS: BP 129/86
== END 2024-04-18 14:25 | disposition home or self-care (01) ==
LOC: EDHOLD 03:21 → ED 03:21 → SUATTDRO 18:55 → MEDTELE 21:09
PROVIDERS: ADMIT Internal Medicine; ATTEND Student in an Organized Health Care Education/Training Program

== ENCOUNTER 2024-04-25 00:53 | Inpatient (IN) ==
[2024-04-25 01:28] LABS: INR 1.06 (0.85-1.14)
[2024-04-25 01:39] LABS: ABS Basophils 0.1 10^3/uL (0.0-0.1); ABS Eosinophils 0.2 10^3/uL (0.0-0.5); ABS Lymphocytes 2.2 10^3/uL (1.0-4.8); ABS Monocytes 1.3 10^3/uL (0.0-1.1); ABS Neutrophils 9.2 10^3/uL (1.5-7.6); ABS Nucleated RBC 0.02 10^3/ul; Eosinophil % 1.9 %; Hematocrit 39.9 % (38-53); Hemoglobin 12.8 g/dL (13.2-16.3); Lymphocyte % 16.9 %; Mean Corpuscular Hemoglobin 26.1 pg (27-33); Mean Corpuscular Hgb Conc 32.2 g/dL (31-36); Mean Corpuscular Volume 81.2 fL (80-97); Mean Platelet Volume 8.1 fL (7.5-11.2); Nucleated Red Blood Cells % 0.1 %/100WBC (0.0-0.8); Platelet Count 326 10^3/uL (150-450); Red Blood Count 4.92 10^6/uL (4.06-5.63); Red Cell Distribution Width 16.8 % (12-17)
[2024-04-25 02:02] LABS: Albumin 3.7 g/dL (3.2-5.2); Albumin/Globulin Ratio 1.3 (1-3); Calcium 9.2 mg/dL (8.6-10.3); Creatinine, Serum 0.59 mg/dL (0.67-1.17); Globulin 2.8 g/dL (2-4); Potassium 4.1 mmol/L (3.5-5.0); Total Bilirubin 0.3 mg/dL (0.2-1.0); Total Protein 6.5 g/dL (6.4-8.9)
[2024-04-25] MEDS: Morphine 4 MG/ML VIAL (1 ml) IV ONE (02:14)
[2024-04-25] MEDS: Iodixanol (CONTRAST) 320 MG/ML 100 ML SDV IV ONE (02:27)
[2024-04-25 02:56] LABS: High Sensitivity Troponin 1 Hr 5 pg/mL (<20)
[2024-04-25] MEDS ORDERED: Albuterol HFA INHALER 8 gm MDI INH PRN (05:09)
[2024-04-25] MEDS: Enoxaparin 40 MG/0.4 ML SYR SUBCUT SCH (05:24)
[2024-04-25] MEDS: Acetaminophen IV 1 GM/100ML 1,000 MG/100 ML BAG IV SCH (05:57)
[2024-04-25] MEDS: Lactated Ringers 1000 ml BAG 1,000 ML IV ONE (05:57)
[2024-04-25] MEDS: Pantoprazole VIAL 40 MG VIAL IV SCH (06:23)
[2024-04-25 06:24] LABS: Magnesium 1.7 mg/dL (1.9-2.7)
[2024-04-25] MEDS: Magnesium Sulf 4 GM/100 ML IV 4,000 MG/100 ML BAG IVPB ONE (06:40)
[2024-04-25] MEDS ORDERED: DULoxetine DR 60 mg CAP PO SCH (09:00)
[2024-04-25] MEDS: Nicotine PATCH 14 MG/24 HR PATCH TRANSDERM SCH (10:29)
[2024-04-25] MEDS: SPIRIVA Respimat (tiotropium) 2.5 mcg/inh Inhaler INH SCH (10:29)
[2024-04-25] MEDS: Aspirin EC 81 mg TAB.EC (enteric coated) PO SCH (10:29)
[2024-04-25] MEDS: DULoxetine DR 30 mg CAP PO SCH (10:30)
[2024-04-25] MEDS: Morphine 2 MG/ML SYRINGE IV PRN (11:59)
[2024-04-25] MEDS: Lactated Ringers 1000 ml BAG 1,000 ML IV SCH (18:17)
[2024-04-25] MEDS: Mometasone 220 MCG MDI INH SCH (21:15)
[2024-04-26 05:54] LABS: Hemoglobin 12.8 g/dL (13.2-16.3); Mean Corpuscular Hemoglobin 26.7 pg (27-33); Mean Corpuscular Hgb Conc 32.9 g/dL (31-36); Mean Corpuscular Volume 81.1 fL (80-97); Mean Platelet Volume 7.8 fL (7.5-11.2); Platelet Count 288 10^3/uL (150-450); Red Blood Count 4.81 10^6/uL (4.06-5.63); Red Cell Distribution Width 16.7 % (12-17); White Blood Count 10.9 10^3/uL (3.6-10.2)
[2024-04-26 06:38] LABS: Creatinine, Serum 0.51 mg/dL (0.67-1.17); Potassium 3.8 mmol/L (3.5-5.0); eGFR CKD-EPI 111.8 (>60)
[2024-04-26] MEDS ORDERED: Senna TAB 8.6 mg TAB PO PRN (10:23)
[2024-04-26] MEDS ORDERED: Morphine 10 MG/ML VIAL (1 ml) IV PRN (11:40)
[2024-04-26] MEDS: Acetaminophen IV 1 GM/100ML 1,000 MG/100 ML BAG IV SCH (17:34)
[2024-04-26] MEDS ORDERED: Polyethylene Glycol 3350 17 GM PACKET PO SCH (21:00)
[2024-04-26] MEDS ORDERED: Senna TAB 8.6 mg TAB PO SCH (21:00)
[2024-04-26 21:26] LABS: Urine Appearance Clear; Urine Bilirubin Negative (Negative); Urine Blood Negative (Negative); Urine Color Light-Yellow; Urine Glucose Negative (Negative); Urine Ketones 2+ (Negative); Urine Nitrite Negative (Negative); Urine Protein Negative (Negative); Urine Specific Gravity 1.027 (1.002-1.030); Urine Urobilinogen Negative (Negative); Urine pH 6.5 (5.0-8.0)
[2024-04-27 06:36] LABS: Hematocrit 39.8 % (38-53); Hemoglobin 12.9 g/dL (13.2-16.3); Mean Corpuscular Hemoglobin 26.2 pg (27-33); Mean Corpuscular Hgb Conc 32.4 g/dL (31-36); Mean Platelet Volume 8.4 fL (7.5-11.2); Platelet Count 287 10^3/uL (150-450); Red Blood Count 4.92 10^6/uL (4.06-5.63); Red Cell Distribution Width 17.3 % (12-17); White Blood Count 11.1 10^3/uL (3.6-10.2)
[2024-04-27 06:59] LABS: Calcium 9.2 mg/dL (8.6-10.3); Creatinine, Serum 0.57 mg/dL (0.67-1.17); Magnesium 1.9 mg/dL (1.9-2.7); Potassium 3.9 mmol/L (3.5-5.0); eGFR CKD-EPI 108.1 (>60)
[2024-04-27 07:59] LABS: C Reactive Protein 9.13 mg/L (<8.01)
[2024-04-27] MEDS: Magnesium Sulfate IV 1GM/100ML 1 GM/100 ML BAG IV ONE (08:42)
[2024-04-27] MEDS: DULoxetine DR 60 mg CAP PO SCH (09:45)
[2024-04-27] MEDS: Lidocaine PATCH 5% PATCH TRANSDERM SCH (12:23)
[2024-04-27] MEDS: Influenza Vaccine *TRI* 2024-25* 0.5 ML SYRINGE IM ONE (12:34)
[2024-04-27] MEDS: Diatrizoate Meg/Sod(CONTRAST) 30 ML ORAL.SOLN PO ONE (21:50)
[2024-04-27] MEDS: Ondansetron 4 mg VIAL 2 MG/ML 2 ml VIAL IV PRN (23:25)
[2024-04-28 06:34] LABS: ABS Basophils 0.1 10^3/uL (0.0-0.1); ABS Eosinophils 0.2 10^3/uL (0.0-0.5); ABS Lymphocytes 1.1 10^3/uL (1.0-4.8); ABS Monocytes 0.6 10^3/uL (0.0-1.1); ABS Neutrophils 9.8 10^3/uL (1.5-7.6); Eosinophil % 2.1 %; Lymphocyte % 9.3 %; Mean Corpuscular Hemoglobin 26.3 pg (27-33); Mean Corpuscular Hgb Conc 32.4 g/dL (31-36); Mean Corpuscular Volume 81.3 fL (80-97); Mean Platelet Volume 8.2 fL (7.5-11.2); Platelet Count 268 10^3/uL (150-450); Red Blood Count 4.93 10^6/uL (4.06-5.63); Red Cell Distribution Width 17.4 % (12-17); White Blood Count 11.8 10^3/uL (3.6-10.2)
[2024-04-28] MEDS: Iohexol 300 (CONTRAST) 10 ML SDV IV ONE (14:37)
[2024-04-28] MEDS: Polyethylene Glycol 3350 17 GM PACKET PO SCH (20:14)
[2024-04-28] MEDS: Senna TAB 8.6 mg TAB PO SCH (20:16)
[2024-04-29 06:03] LABS: ABS Basophils 0.1 10^3/uL (0.0-0.1); ABS Eosinophils 0.2 10^3/uL (0.0-0.5); ABS Lymphocytes 0.7 10^3/uL (1.0-4.8); ABS Monocytes 0.7 10^3/uL (0.0-1.1); ABS Neutrophils 15.8 10^3/uL (1.5-7.6); ABS Nucleated RBC 0.01 10^3/ul; Hematocrit 34.6 % (38-53); Hemoglobin 11.3 g/dL (13.2-16.3); Lymphocyte % 4.3 %; Mean Corpuscular Hemoglobin 26.4 pg (27-33); Mean Corpuscular Hgb Conc 32.6 g/dL (31-36); Mean Platelet Volume 8.3 fL (7.5-11.2); Platelet Count 224 10^3/uL (150-450); Red Blood Count 4.27 10^6/uL (4.06-5.63); Red Cell Distribution Width 18.1 % (12-17); White Blood Count 17.5 10^3/uL (3.6-10.2)
[2024-04-29 06:23] LABS: Calcium 8.6 mg/dL (8.6-10.3); Creatinine, Serum 0.58 mg/dL (0.67-1.17); Magnesium 1.7 mg/dL (1.9-2.7); Phosphorus 4.7 mg/dL (2.5-5.0); Potassium 3.4 mmol/L (3.5-5.0); eGFR CKD-EPI 107.6 (>60)
[2024-04-29] MEDS: KCL 20 MEQ/100 ML IVPREMIX 20 MEQ/100 ML BAG IV ONE (08:02)
[2024-04-29] MEDS: Magnesium Sulfate 2 gm BAG 2 GM/50 ML BAG IVPB ONE (10:59)
[2024-04-29] MEDS: Polyethylene Glycol 3350 BTL 238 GM BTL PO ONE (16:30)
[2024-04-30] MEDS: Polyethylene Glycol 3350 BTL 238 GM BTL PO ONE (05:20)
[2024-04-30 07:00] LABS: ABS Basophils 0.1 10^3/uL (0.0-0.1); ABS Eosinophils 0.1 10^3/uL (0.0-0.5); ABS Lymphocytes 0.9 10^3/uL (1.0-4.8); ABS Monocytes 0.8 10^3/uL (0.0-1.1); ABS Neutrophils 10.8 10^3/uL (1.5-7.6); Eosinophil % 0.9 %; Hematocrit 34.3 % (38-53); Hemoglobin 11.2 g/dL (13.2-16.3); Lymphocyte % 6.8 %; Mean Corpuscular Hemoglobin 26.6 pg (27-33); Mean Corpuscular Hgb Conc 32.7 g/dL (31-36); Mean Corpuscular Volume 81.5 fL (80-97); Mean Platelet Volume 8.6 fL (7.5-11.2); Platelet Count 234 10^3/uL (150-450); Red Blood Count 4.21 10^6/uL (4.06-5.63); Red Cell Distribution Width 17.9 % (12-17); White Blood Count 12.7 10^3/uL (3.6-10.2)
[2024-04-30 07:28] LABS: Calcium 8.1 mg/dL (8.6-10.3); Creatinine, Serum 0.68 mg/dL (0.67-1.17); Magnesium 1.8 mg/dL (1.9-2.7); Potassium 3.2 mmol/L (3.5-5.0); eGFR CKD-EPI 102.5 (>60)
[2024-04-30] MEDS: Potassium EFFERVES 25 meq TAB PO ONE (08:48)
[2024-04-30] MEDS: Magnesium Sulfate IV 1GM/100ML 1 GM/100 ML BAG IV ONE (08:50)
[2024-04-30] MEDS ORDERED: Lidocaine 2% JELLY 6 ML Topical TOPICAL ONE (10:06)
[2024-04-30] MEDS ORDERED: Phenylephrine 40 mcg/mL 10mL (400mcg) SYRINGE ONE ×2 (10:24→10:46)
[2024-04-30] MEDS: Ferric Gluconate IV 125 MG in NS 0.9% 100 ml BAG 100 ML IVPB SCH (13:03)
[2024-04-30] MEDS: Nicotine PATCH 14 MG/24 HR PATCH TRANSDERM SCH (14:13)
[2024-05-01 06:55] LABS: Hematocrit 33.9 % (38-53); Hemoglobin 11.4 g/dL (13.2-16.3); Mean Corpuscular Hemoglobin 27.4 pg (27-33); Mean Corpuscular Hgb Conc 33.7 g/dL (31-36); Mean Corpuscular Volume 81.3 fL (80-97); Mean Platelet Volume 8.6 fL (7.5-11.2); Platelet Count 215 10^3/uL (150-450); Red Blood Count 4.18 10^6/uL (4.06-5.63); Red Cell Distribution Width 18.2 % (12-17); White Blood Count 9.2 10^3/uL (3.6-10.2)
[2024-05-01 07:30] LABS: Calcium 8.5 mg/dL (8.6-10.3); Creatinine, Serum 0.61 mg/dL (0.67-1.17); Magnesium 1.8 mg/dL (1.9-2.7); Potassium 3.7 mmol/L (3.5-5.0); eGFR CKD-EPI 105.9 (>60)
[2024-05-01] MEDS: Magnesium Sulfate IV 1GM/100ML 1 GM/100 ML BAG IV ONE (09:29)
[2024-05-01] MEDS: KCL 10 MEQ/50 ML IVPREMIX 10 MEQ/50 ML BAG IV SCH (10:31)
[2024-05-01] MEDS: Senna TAB 8.6 mg TAB PO SCH (11:36)
[2024-05-02 06:50] LABS: Hematocrit 35.1 % (38-53); Hemoglobin 11.6 g/dL (13.2-16.3); Mean Corpuscular Hemoglobin 27.2 pg (27-33); Mean Corpuscular Hgb Conc 33.1 g/dL (31-36); Mean Corpuscular Volume 82.2 fL (80-97); Mean Platelet Volume 8.7 fL (7.5-11.2); Platelet Count 223 10^3/uL (150-450); Red Blood Count 4.27 10^6/uL (4.06-5.63); Red Cell Distribution Width 18.7 % (12-17); White Blood Count 7.5 10^3/uL (3.6-10.2)
[2024-05-02] MEDS ORDERED: Magnesium Sulfate 2 gm BAG 2 GM/50 ML BAG IVPB ONE (07:35)
[2024-05-02 07:38] LABS: Creatinine, Serum 0.51 mg/dL (0.67-1.17); Magnesium 1.7 mg/dL (1.9-2.7); Potassium 3.6 mmol/L (3.5-5.0); eGFR CKD-EPI 111.8 (>60)
[2024-05-02] MEDS: Magnesium Sulfate 2 gm BAG 2 GM/50 ML BAG IVPB ONE (09:28)
[2024-05-02] MEDS: Magnesium Sulfate IV 1GM/100ML 1 GM/100 ML BAG IV ONE (11:00)
[2024-05-02] MEDS: Lactulose 30 ml UDC PO SCH (15:18)
[2024-05-02] MEDS: PEG 3000 GI LAVAGE 1 GALLON PO ONE (15:19)
[2024-05-03] MEDS ORDERED: fentaNYL 100 mcg/2 ml 50 MCG/ML VIAL ONE (15:00)
[2024-05-03] MEDS ORDERED: Midazolam 5 mg/5 ml VIAL 1 mg/ml 5 ml VIAL (5 mg) ONE (15:00)
[2024-05-03 17:40] VITALS: BP 112/80
[2024-05-04] MEDS ORDERED: Nicotine PATCH 21 MG/24 HR PATCH TRANSDERM SCH (09:00)
== END 2024-05-03 19:50 | disposition home or self-care (01) | DRG 247 ==
LOC: ED 00:53 → EDHOLD 00:53 → SUATTDRO 04:33 → MED 04-26 14:52
PROVIDERS: ADMIT Internal Medicine; ATTEND Hospitalist